=== PATIENT | male | born 1950 | race Hispanic/Latino ===

== ENCOUNTER 2019-10-29 08:44 | Day surgery (SDC) | payer MEDICARE ==
[2019-10-28 15:26] LABS: BASOPHILS % (AUTO) 0.7 % (0.0-5.0); EOSINOPHILS % (AUTO) 3.1 % (0.0-8.0); HEMATOCRIT 41.7 % (42-54); LYMPHOCYTES % (AUTO) 25.3 % (21.0-51.0); MEAN CORPUSCULAR HEMOGLOBIN 32.5 pg (27.0-33.0); MEAN CORPUSCULAR HGB CONC 32.4 g/dL (32.0-36.0); MEAN CORPUSCULAR VOLUME 100.5 fL (79-99); MONOCYTES % (AUTO) 9.7 % (3.0-13.0); NEUTROPHILS % (AUTO) 60.9 % (40.0-77.0); PLATELET COUNT (AUTO) 242 K/uL (130-400); RED BLOOD CELL COUNT(AUTO) 4.15 MIL/uL (4.50-6.20); RED CELL DISTRIBUTION WIDTH 13.1 % (11.0-15.5); WHITE BLOOD COUNT (AUTO) 7.1 K/uL (4.8-10.8)
[2019-10-28 15:36] VITALS: BP 124/76
[2019-10-28 15:39] LABS: CREATININE 1.2 mg/dL (0.5-1.5); POTASSIUM 5.2 mmol/L (3.5-5.1)
[2019-10-28 15:40] LABS: PARTIAL THROMBOPLASTIN TIME 37.3 SEC (26.3-35.5)
[2019-10-28 16:03] LABS: INR 3.56 (0.85-1.15); PROTHROMBIN TIME 35.6 SEC (9.6-11.6)
--- NOTE | 2019-10-28 16:10 | NUR ---
LAB CALLED WITH CRITICAL INR 3.56, PT 35.6. SEYMOUR GARCIA IS AWARE. ORDERS ARE TO TELL PT. NOT TO TAKE WARFARIN TONIGHT AND TO REPEAT INR/PT IN AM.
[2019-10-29] VITALS (13 sets, daily range): BP systolic 98–138; BP diastolic 49–75
[~2019-10-29] VITALS: Ht 188 cm; Wt 105.0 kg
[~2019-10-29 08:44] MED LIST: ATOR40TA69 PO; CLOP75TA32 PO; FAMO20TA8 PO; LISI2.5T2 PO; METO-391 PO; SODIUM CHLORIDE 0.9% 500ML 500 ML IV SCH
--- NOTE | 2019-10-29 08:54 | NUR ---
PROCEDURE PT HERE FOR PROCEDURE. DENIES ANY PAIN AT THIS TIME. AT BEDSIDE.
[2019-10-29] MEDS ORDERED: WARF7.5T49 PO (09:04)
[2019-10-29] MEDS ORDERED: SODIUM CHLORIDE 0.9% 1000ML 1,000 ML IV ONE (09:07)
[2019-10-29 09:20] LABS: INR 2.66 (0.85-1.15); PROTHROMBIN TIME 26.9 SEC (9.6-11.6)
[2019-10-29] MEDS ORDERED: MIDAZOLAM HCL 1 MG/ML 2ML VIAL ONE (09:24)
[2019-10-29] MEDS ORDERED: FENTANYL CITRATE PF 50 MCG/1 ML 2ML VIAL ONE (09:25)
[2019-10-29] MEDS ORDERED: FLUMAZENIL 0.1MG/1ML 5ML VIAL IV ONE (09:25)
[2019-10-29] MEDS ORDERED: LIDOCAINE HCL 2% VISCOUS 15 ML UDCUP ONE (09:26)
[2019-10-29] MEDS ORDERED: NALOXONE HCL 0.4 MG/1 ML ML ONE (09:26)
--- NOTE | 2019-10-29 10:00 | NUR ---
PT/INR SEYMOUR STEWART INFORMED OF NEW PT/INR RESULTS.ORDERS RECEIVED TO PROCEED WITH PLANNED PROCEDURE.
[2019-10-29] MEDS ORDERED: ATROPINE SULFATE 0.1 MG/ML 10 ML SYG IVP ONE (12:18)
--- NOTE | 2019-10-29 12:30 | NUR ---
HR DR. CARMONA INFORMED OF HR IN THE 39-48. NO ORDERS RECEIVED. PROCEED WITH PLANNED PROCEDURE.
== END 2019-10-29 15:30 | disposition home or self-care (01) ==
LOC: DAH 08:44
PROVIDERS: ATTEND Internal Medicine Cardiovascular Disease
DX: I25.5 Ischemic cardiomyopathy (principal); I51.3 Intracardiac thrombosis, not elsewhere classified; I70.0 Atherosclerosis of aorta; I35.1 Nonrheumatic aortic (valve) insufficiency; Z79.899 Other long term (current) drug therapy; Z95.5 Presence of coronary angioplasty implant and graft; Z98.890 Other specified postprocedural states; Z79.01 Long term (current) use of anticoagulants
CPT/HCPCS: 36415 ×2; 80048; 85025; 85610 ×2; 85730; 93312; A4215; A4216; A4222; A4223 ×2; A4663; J2250; J3010; J7030; 93313; 99152; 99153; J0461; J2310; J3490

== ENCOUNTER 2020-06-14 14:28 | Emergency (ER) | payer MEDICARE ==
[~2020-06-14 14:28] MED LIST changes: -METO-391 PO; -SODIUM CHLORIDE 0.9% 500ML 500 ML IV SCH
[2020-06-14] MEDS ORDERED: ASPIRIN 325 MG TABLET ONE (14:55)
[2020-06-14 15:08] LABS: BASOPHILS % (AUTO) 0.7 % (0.0-5.0); EOSINOPHILS % (AUTO) 2.2 % (0.0-8.0); HEMATOCRIT 42.6 % (42-54); LYMPHOCYTES % (AUTO) 23.7 % (21.0-51.0); MEAN CORPUSCULAR HGB CONC 33.6 g/dL (32.0-36.0); MEAN CORPUSCULAR VOLUME 98.4 fL (79-99); MONOCYTES % (AUTO) 10.2 % (3.0-13.0); NEUTROPHILS % (AUTO) 63.1 % (40.0-77.0); PLATELET COUNT (AUTO) 223 K/uL (130-400); RED BLOOD CELL COUNT(AUTO) 4.33 MIL/uL (4.50-6.20); RED CELL DISTRIBUTION WIDTH 12.6 % (11.0-15.5); WHITE BLOOD COUNT (AUTO) 8.4 K/uL (4.8-10.8)
[2020-06-14 15:19] LABS: INR 0.91 (0.85-1.15); PARTIAL THROMBOPLASTIN TIME 23.9 SEC (26.3-35.5); PROTHROMBIN TIME 9.9 SEC (9.6-11.6)
[2020-06-14 15:22] LABS: CREATININE 1.9 mg/dL (0.5-1.5); POTASSIUM 4.3 mmol/L (3.5-5.1)
[2020-06-14 15:27] LABS: ALBUMIN 3.7 g/dL (3.5-5.0); BILIRUBIN,TOTAL 0.4 mg/dL (0.2-1.0); TOTAL PROTEIN, SERUM 7.9 g/dL (6.0-8.3)
[2020-06-14 15:31] LABS: B-TYPE NATRIURETIC PEPTIDE 62 pg/mL (0-100)
== END 2020-06-14 18:17 | disposition left against medical advice (07) ==
LOC: EDH 14:28
DX: R07.89 Other chest pain (principal); I25.10 Atherosclerotic heart disease of native coronary artery without angina pectoris; Z98.890 Other specified postprocedural states
CPT/HCPCS: 36415; 71045; 80053; 82550; 83880; 84484; 85025; 85610; 85730; 93005

== ENCOUNTER 2020-06-19 15:47 | Inpatient (IN) | payer MEDICARE ==
[~2020-06-19] VITALS: Ht 190.5 cm; Wt 108.9 kg
[2020-06-19] VITALS (9 sets, daily range): BP systolic 101–115; BP diastolic 71–77
[2020-06-19] MEDS ORDERED: ONDANSETRON HCL 4 MG/2 ML VIAL ONE (15:55)
[2020-06-19] MEDS ORDERED: FENTANYL CITRATE PF 50 MCG/1 ML 2ML VIAL ONE ×2 (15:55→17:39)
[2020-06-19] MEDS ORDERED: ASPIRIN 325 MG TABLET ONE (16:04)
[2020-06-19 16:06] LABS: BASOPHILS % (AUTO) 0.8 % (0.0-5.0); EOSINOPHILS % (AUTO) 1.4 % (0.0-8.0); HEMATOCRIT 46.5 % (42-54); LYMPHOCYTES % (AUTO) 31.4 % (21.0-51.0); MEAN CORPUSCULAR HEMOGLOBIN 33.1 pg (27.0-33.0); MEAN CORPUSCULAR HGB CONC 33.3 g/dL (32.0-36.0); MEAN CORPUSCULAR VOLUME 99.4 fL (79-99); MONOCYTES % (AUTO) 10.5 % (3.0-13.0); NEUTROPHILS % (AUTO) 55.6 % (40.0-77.0); PLATELET COUNT (AUTO) 236 K/uL (130-400); RED BLOOD CELL COUNT(AUTO) 4.68 MIL/uL (4.50-6.20); RED CELL DISTRIBUTION WIDTH 12.6 % (11.0-15.5); WHITE BLOOD COUNT (AUTO) 9.8 K/uL (4.8-10.8)
[2020-06-19 16:15] LABS: INR 0.92 (0.85-1.15); PARTIAL THROMBOPLASTIN TIME 24.7 SEC (26.3-35.5)
[2020-06-19] MEDS ORDERED: DEXTROSE 5% IVP SCH (16:15)
[2020-06-19] MEDS ORDERED: WATER IVP SCH (16:15)
[2020-06-19] MEDS ORDERED: PROCAINAMIDE HCL IVP SCH (16:15)
[2020-06-19 16:18] LABS: POTASSIUM 4.2 mmol/L (3.5-5.1)
[2020-06-19 16:23] LABS: ALBUMIN 3.9 g/dL (3.5-5.0); BILIRUBIN,TOTAL 0.6 mg/dL (0.2-1.0); TOTAL PROTEIN, SERUM 8.5 g/dL (6.0-8.3)
[2020-06-19] MEDS: PROCAINAMIDE HCL IVP SCH (16:30)
[2020-06-19] MEDS: SODIUM CHLORIDE 0.9% IVP SCH (16:30)
[2020-06-19] MEDS ORDERED: AMIODARONE HCL 50 MG/ML 3 ML VIAL ONE (17:09)
[2020-06-19] MEDS ORDERED: AMIODARONE HCL 900 MG in DEXTROSE 5%-WATER 500 ML IV SCH (17:15)
[2020-06-19] MEDS ORDERED: AMIODARONE HCL 450 MG in DEXTROSE 5%-WATER 250 ML IV SCH (17:30)
[2020-06-19] MEDS ORDERED: MIDAZOLAM HCL 5 MG/ML 2ML VIAL IV ONE (17:39)
[2020-06-19] MEDS ORDERED: SODIUM CHLORIDE 0.9% 1000ML 1,000 ML IV ONE (17:40)
[2020-06-19] MEDS ORDERED: METOPROLOL TARTRATE 1 MG/ML 5ML VIAL IV ONE (17:56)
[2020-06-19 18:07] LABS: BASOPHILS % (AUTO) 0.5 % (0.0-5.0); EOSINOPHILS % (AUTO) 0.5 % (0.0-8.0); HEMATOCRIT 40.8 % (42-54); LYMPHOCYTES % (AUTO) 11.5 % (21.0-51.0); MEAN CORPUSCULAR HEMOGLOBIN 33.2 pg (27.0-33.0); MEAN CORPUSCULAR HGB CONC 33.6 g/dL (32.0-36.0); MEAN CORPUSCULAR VOLUME 98.8 fL (79-99); MONOCYTES % (AUTO) 6.8 % (3.0-13.0); NEUTROPHILS % (AUTO) 80.3 % (40.0-77.0); PLATELET COUNT (AUTO) 203 K/uL (130-400); RED BLOOD CELL COUNT(AUTO) 4.13 MIL/uL (4.50-6.20); RED CELL DISTRIBUTION WIDTH 12.7 % (11.0-15.5); WHITE BLOOD COUNT (AUTO) 11.3 K/uL (4.8-10.8)
[2020-06-19] MEDS ORDERED: HEPARIN 25000 UNITS/250 ML D5W 250 ML IV ONE (18:19)
[2020-06-19] MEDS ORDERED: METOPROLOL TARTRATE 50 MG TAB ONE (18:19)
[2020-06-19 18:21] LABS: ALBUMIN 3.3 g/dL (3.5-5.0); BILIRUBIN,TOTAL 0.6 mg/dL (0.2-1.0)
[2020-06-19 18:29] LABS: TROPONIN I 0.37 ng/mL (0.00-0.06)
[2020-06-19] MEDS ORDERED: HEPARIN SODIUM/PF 100UNIT/ML 5ML SYRINGE IV ONE (18:35)
[2020-06-19] MEDS ORDERED: HEPARIN SODIUM 5000UNIT/ML 1ML VIAL ONE (18:54)
--- NOTE | 2020-06-19 20:00 | NUR ---
NEW ADMISSION 70 YEAR OLD MALE PT ADMITTED TO DAY PATIENT ICU ROOM 1B WITH A DX OF CHEST PAIN AND WIDE COMPLEX TACHYCARDIA WITH HEPARIN AND AMIODARONE INFUSING WITHOUT DIFFICULTY. PT AAOX4, PLEASANT, COOPERATIVE, CURRENTLY DENIES ANY PAIN, CHEST PAIN, S.O.B., OR NAUSEA. PT MADE AWARE OF PLAN OF CARE, BEDREST, O2 AND RATIONALE, QUESTIONS ASKED AND ANSWERED. ASSESSMENT COMPLETED, SEE FLOW SHEET. ALSO SEE NURSING DATA BASE AND PT HX FOR MORE INFORMATION.
--- NOTE | 2020-06-19 20:10 | NUR ---
DR GONZALES ANSWERING SERVICE MADE AWARE OF CONSULT AT 1956. DR GONZALES RETURNED THE CALL AND MADE AWARE OF CONSULT
--- NOTE | 2020-06-19 20:12 | NUR ---
DR GIBSON ARREAGA MADE AWARE OF CONSULT
[2020-06-19] MEDS: HEPARIN 25000 UNITS/250 ML D5W 250 ML IV SCH (20:26)
[2020-06-19] MEDS: MAGNESIUM 2GM PREMIX 50ML 50 ML IV PRN (20:45)
[2020-06-19] MEDS: METOPROLOL TARTRATE 25 MG TAB PO SCH (21:00)
--- NOTE | 2020-06-19 21:15 | NUR ---
DR DEVYN SHEPARD INTO SEE PT. MADE AWARE OF CURRENT STATUS. NO NEW ORDERS RECEIVED
[2020-06-19] MEDS ORDERED: NITR0.4T50 SL (23:06)
[2020-06-19] MEDS ORDERED: AEC81 PO (23:06)
[2020-06-20] VITALS (24 sets, daily range): BP systolic 93–143; BP diastolic 41–79
[2020-06-20 00:07] LABS: TROPONIN I 10.85 ng/mL (0.00-0.06)
[2020-06-20 01:00] LABS: PROTHROMBIN TIME 10.8 SEC (9.6-11.6)
[2020-06-20 02:16] LABS: PARTIAL THROMBOPLASTIN TIME > 120.0 SEC (26.3-35.5)
[2020-06-20 05:39] LABS: EOSINOPHILS % (AUTO) 1.6 % (0.0-8.0); HEMATOCRIT 39.9 % (42-54); LYMPHOCYTES % (AUTO) 22.5 % (21.0-51.0); MEAN CORPUSCULAR HEMOGLOBIN 33.1 pg (27.0-33.0); MEAN CORPUSCULAR HGB CONC 33.1 g/dL (32.0-36.0); NEUTROPHILS % (AUTO) 62.5 % (40.0-77.0); PLATELET COUNT (AUTO) 182 K/uL (130-400); RED BLOOD CELL COUNT(AUTO) 3.99 MIL/uL (4.50-6.20); RED CELL DISTRIBUTION WIDTH 12.8 % (11.0-15.5); WHITE BLOOD COUNT (AUTO) 9.3 K/uL (4.8-10.8)
[2020-06-20 06:33] LABS: CREATININE 1.9 mg/dL (0.5-1.5); MAGNESIUM 2.2 mg/dL (1.80-2.40); PHOSPHORUS 3.7 mg/dL (2.5-4.9); POTASSIUM 4.9 mmol/L (3.5-5.1); THYROID STIMULATING HORMONE 2.79 uIU/mL (0.36-3.74)
[2020-06-20 06:36] LABS: TROPONIN I 18.01 ng/mL (0.00-0.06)
[2020-06-20] MEDS: METOPROLOL TARTRATE 25 MG TAB PO SCH ×3 (07:59→21:20)
[2020-06-20 08:51] LABS: INR 0.99 (0.85-1.15); PROTHROMBIN TIME 10.7 SEC (9.6-11.6)
[2020-06-20 08:55] LABS: PARTIAL THROMBOPLASTIN TIME > 120.0 SEC (26.3-35.5)
--- NOTE | 2020-06-20 11:55 | NUR ---
cm note met with pt and states resides at home with spouse, independent with adls/ambulation no dme. no home services, pt drives. dc plan is back home. no dc needs. Addendum: 06/20/20 at 1159 by MALACHI LOVE CM Amended: Links added.
[2020-06-20] MEDS: CLOPIDOGREL BISULFATE 75 MG TAB PO SCH (12:36)
[2020-06-20] MEDS: PROCAINAMIDE HCL IVP SCH (12:37)
[2020-06-20] MEDS: SODIUM CHLORIDE 0.9% IVP SCH (12:37)
[2020-06-20] MEDS: SODIUM CHLORIDE 0.9% 1000ML 1,000 ML IV SCH (16:08)
[2020-06-20 16:41] LABS: INR 0.97 (0.85-1.15); PROTHROMBIN TIME 10.5 SEC (9.6-11.6)
[2020-06-20 17:07] LABS: PARTIAL THROMBOPLASTIN TIME 103.8 SEC (26.3-35.5)
[2020-06-20] MEDS: AMIODARONE HCL 200 MG TABLET PO SCH (21:20)
[2020-06-20] MEDS: ATORVASTATIN CALCIUM 40 MG TABLET PO SCH (21:20)
[2020-06-20 23:41] LABS: PARTIAL THROMBOPLASTIN TIME 74.1 SEC (26.3-35.5); PROTHROMBIN TIME 10.8 SEC (9.6-11.6)
[2020-06-21] VITALS (24 sets, daily range): BP systolic 93–136; BP diastolic 53–95
[2020-06-21 06:18] LABS: MEAN CORPUSCULAR HEMOGLOBIN 33.4 pg (27.0-33.0); MEAN CORPUSCULAR HGB CONC 33.3 g/dL (32.0-36.0); MEAN CORPUSCULAR VOLUME 100.3 fL (79-99); PLATELET COUNT (AUTO) 178 K/uL (130-400); RED BLOOD CELL COUNT(AUTO) 3.89 MIL/uL (4.50-6.20); RED CELL DISTRIBUTION WIDTH 12.7 % (11.0-15.5); WHITE BLOOD COUNT (AUTO) 10.9 K/uL (4.8-10.8)
[2020-06-21 06:31] LABS: CREATININE 1.8 mg/dL (0.5-1.5); POTASSIUM 4.9 mmol/L (3.5-5.1)
[2020-06-21 06:33] LABS: INR 0.97 (0.85-1.15); PARTIAL THROMBOPLASTIN TIME 61.1 SEC (26.3-35.5); PROTHROMBIN TIME 10.5 SEC (9.6-11.6)
[2020-06-21 07:55] LABS: BASOPHILS % (MANUAL) 1 % (0-2); EOSINOPHILS % (MANUAL) 2 % (1-6); LYMPHOCYTES % (MANUAL) 22 % (22-44); MAN.DIFF COMMENT-IMPRESSION MANUAL DIFFERENTIAL; MONOCYTES % (MANUAL) 11 % (2-9); PLATELET MORPHOLOGY COMMENT ADEQUATE; SEGMENTED NEUTROPHILS % 64 % (40-70)
[2020-06-21] MEDS: AMIODARONE HCL 200 MG TABLET PO SCH ×2 (09:43→21:00)
[2020-06-21] MEDS: CLOPIDOGREL BISULFATE 75 MG TAB PO SCH (09:44)
[2020-06-21] MEDS: SODIUM CHLORIDE 0.9% 1000ML 1,000 ML IV SCH (09:44)
[2020-06-21] MEDS: METOPROLOL TARTRATE 25 MG TAB PO SCH ×2 (09:44→13:48)
[2020-06-21] MEDS: ASPIRIN 81MG TAB.CHEW PO SCH (09:44)
[2020-06-21] MEDS: HEPARIN 25000 UNITS/250 ML D5W 250 ML IV SCH (10:02)
[2020-06-21] MEDS ORDERED: NICARDIPINE HCL 25 MG/10 ML ML IV ONE (12:01)
[2020-06-21] MEDS ORDERED: HEPARIN SODIUM 1000UNIT/ML 10ML VIAL ONE (12:02)
[2020-06-21] MEDS ORDERED: LIDOCAINE HCL 2% 20ML ONE (12:02)
[2020-06-21] MEDS ORDERED: NITROGLYCERIN 2 MG/VIAL VIAL IV ONE (12:02)
[2020-06-21] MEDS ORDERED: IOHEXOL-350 50ML VIAL IV ONE (12:02)
[2020-06-21] MEDS ORDERED: IOHEXOL 350 MG/ML 100ML INFUS..BTL IV ONE (12:02)
--- NOTE | 2020-06-21 12:45 | NUR ---
Pt taken to [facility] for LHC.
[2020-06-21] MEDS ORDERED: FENTANYL CITRATE PF 50 MCG/1 ML 2ML VIAL ONE ×2 (13:08→23:27)
[2020-06-21] MEDS ORDERED: MIDAZOLAM HCL 1 MG/ML 2ML VIAL ONE ×2 (13:08→23:28)
[2020-06-21] MEDS: PROCAINAMIDE HCL IVP SCH (13:48)
[2020-06-21] MEDS: SODIUM CHLORIDE 0.9% IVP SCH (13:48)
[2020-06-21] MEDS ORDERED: SODIUM CHLORIDE 0.9% 1000ML 1,000 ML IV SCH (14:09)
--- NOTE | 2020-06-21 14:57 | NUR ---
DR. BREWSTER CALLED AND NOTIFIED OF CONSULT.
[2020-06-21 20:47] LABS: APPEARANCE,URINE Clear (CLEAR); BILIRUBIN,URINE Negative (NEGATIVE); COLOR,URINE Yellow (YELLOW); GLUCOSE, URINE (UA) Negative (NEGATIVE); KETONES,URINE Negative (NEGATIVE); LEUKOCYTE ESTERASE ,URINE Trace (NEGATIVE); NITRATE,URINE Negative (NEGATIVE); OCCULT BLOOD,URINE Large (NEGATIVE); PROTEIN,URINE Trace mg/dL (NEGATIVE)
[2020-06-21 20:55] LABS: AMPHET/METH SCREEN,URINE NEGATIVE (NEGATIVE); BARBITURATE SCREEN, URINE NEGATIVE (NEGATIVE); BENZODIAZEPINES SCREEN,URINE POSITIVE (NEGATIVE); CANNABINOID SCREEN,URINE NEGATIVE (NEGATIVE); COCAINE SCREEN,URINE NEGATIVE (NEGATIVE); OPIATE SCREEN,URINE NEGATIVE (NEGATIVE); PHENCYCLIDINE SCREEN,URINE NEGATIVE (NEGATIVE)
[2020-06-21] MEDS: ATORVASTATIN CALCIUM 40 MG TABLET PO SCH (21:00)
[2020-06-21 21:12] LABS: BACTERIA,URINE Rare /HPF (None Seen); SQUAMOUS EPITHELIAL CELL,UR Rare /HPF (0-2); WBC,URINE 0-1 /HPF (0-1)
[2020-06-21] MEDS ORDERED: AMIODARONE HCL 150 MG in DEXTROSE 5%-WATER 100 ML IV SCH (21:15)
[2020-06-21] MEDS ORDERED: AMIODARONE HCL 360 MG in DEXTROSE 5%-WATER 200 ML IV SCH (21:15)
[2020-06-21 21:30] LABS: CREATININE 1.8 mg/dL (0.5-1.5); POTASSIUM 4.1 mmol/L (3.5-5.1)
[2020-06-21 21:34] LABS: ALBUMIN 3.2 g/dL (3.5-5.0); BILIRUBIN,TOTAL 0.4 mg/dL (0.2-1.0); MAGNESIUM 1.8 mg/dL (1.80-2.40)
--- NOTE | 2020-06-21 22:34 | NUR ---
dr tomas callejas notified of patients current status. patient was running vtach since 2049 converted to svt 2124 hr 210s patient asymptomatic, warm and dry, aaox4, most recent bp 144/87, patient on nc 2L reports palpitations has resolved denies chest pain the entire pain Addendum: 06/21/20 at 2313 by LIA NUNEZ RN informed dr callejas that dr trejo came up to evaluate patient and ordered the amiodarone bolus of 150mg and then start the amiodarone per protocol. informed dr callejas that metoprolol had been stopped if he wanted to resume. stated that patient was having episodes of bradycardia after the cardioversion so hold off on bb for now but discontinue fluids. dr callejas informed me that he spoke to dr zhu prior to calling me and the plan was as continues: give lidocaine 100mg iv x1 then start lidocaine drip at 2mg/hr stop fluids continue to hold bb - tomas callejas asked me to inform patient that if lidocaine drip does not help resolve current arrhythmia then he will need to be cardioverted tonight. patient updated and verbalized understanding. patient transferred to manda kyle in icu informed her of latest orders from dr tomas callejas patient aaox4, bp stable and drip currently running to r wrist 20g
[2020-06-21] MEDS ORDERED: LIDOCAINE 2G/250ML 250 ML IV SCH ×2 (22:45→23:00)
--- NOTE | 2020-06-21 22:53 | NUR ---
PATIENT ARRIVED TO ICU, ICU DAY PT BED-A. PT TRANSFERRED D/T SVT HR >200, PT REQUIRING AMIODARONE DRIP, LIDOCAINE DRIP AND POSSIBLE CARDIOVERSION. PATIENT IS AAOX4, NO C/O CHEST PAIN OR DISTRESS VOICED. PT STATES HE DOES FEEL ANXIETY. NEW ORDERS TO BE CARRIED OUT. HR AT THIS TIME AT SVT 203 bpm. WILL CONT TO MONITOR CLOSELY.
[2020-06-21] MEDS ORDERED: LIDOCAINE HCL/PF 2% IV FOR VENTRICULAR ARRHYTHMIA IV ONE (23:00)
[2020-06-21] MEDS ORDERED: MIDAZOLAM HCL 1 MG/ML 5ML VIAL IVP STA (23:22)
[2020-06-21] MEDS ORDERED: LIDOCAINE PF 2% 5ML ABBOJECT ONE (23:27)
[2020-06-21] MEDS ORDERED: FENTANYL CITRATE PF 50 MCG/1 ML 2ML VIAL IVP ONE (23:30)
[2020-06-22] VITALS (34 sets, daily range): BP systolic 88–155; BP diastolic 49–86
[2020-06-22] MEDS: METOPROLOL TARTRATE 25 MG TAB PO SCH ×3 (00:15→21:23)
--- NOTE | 2020-06-22 00:19 | NUR ---
MD ROUNDS: DR. ANDREEA ENGEL IN TO EVALUATE PATIENT. DECIDED ON CARDIOVERSION. PT RECEIVED 3 MG VERSED AND 75 MCG OF FENTANYL IV PUSH. PT IS ON O2 2 LITERS NC. PATIENT CARDIOVERTED @ 0001 AND CONVERTED TO SR 80s-90s. HE WILL CONT ON AMIODARONE DRIP PER PROTOCOL AND LIDOCAINE DRIP 2MG/HR AND NS AT 60 ML. PT TO START METOPROLOL 25 MG PO x 1 DOSE TONIGHT, WHEN PATIENT IS MORE AWAKE. WILL CONT TO MONITOR CLOSELY.
[2020-06-22] MEDS: MAGNESIUM 2GM PREMIX 50ML 50 ML IV PRN (01:42)
--- NOTE | 2020-06-22 02:32 | NUR ---
RESTING QUIETLY, RR EVEN NONLABORED, HR SB 57 BP 119/70. WILL CONT TO MONITOR CLOSELY.
[2020-06-22 04:55] LABS: BASOPHILS % (AUTO) 0.5 % (0.0-5.0); EOSINOPHILS % (AUTO) 0.7 % (0.0-8.0); HEMATOCRIT 36.9 % (42-54); LYMPHOCYTES % (AUTO) 10.6 % (21.0-51.0); MEAN CORPUSCULAR HEMOGLOBIN 33.3 pg (27.0-33.0); MEAN CORPUSCULAR HGB CONC 33.6 g/dL (32.0-36.0); MEAN CORPUSCULAR VOLUME 99.2 fL (79-99); MONOCYTES % (AUTO) 10.9 % (3.0-13.0); PLATELET COUNT (AUTO) 180 K/uL (130-400); RED BLOOD CELL COUNT(AUTO) 3.72 MIL/uL (4.50-6.20); RED CELL DISTRIBUTION WIDTH 12.5 % (11.0-15.5); WHITE BLOOD COUNT (AUTO) 10.5 K/uL (4.8-10.8)
[2020-06-22 05:12] LABS: CREATININE 1.6 mg/dL (0.5-1.5); MAGNESIUM 2.5 mg/dL (1.80-2.40); PHOSPHORUS 2.6 mg/dL (2.5-4.9); POTASSIUM 4.3 mmol/L (3.5-5.1)
[2020-06-22] MEDS: CLOPIDOGREL BISULFATE 75 MG TAB PO SCH (08:41)
[2020-06-22] MEDS: AMIODARONE HCL 200 MG TABLET PO SCH ×2 (08:45→21:23)
[2020-06-22] MEDS: ASPIRIN 81MG TAB.CHEW PO SCH (08:45)
[2020-06-22] MEDS ORDERED: HEPARIN SODIUM 1000UNIT/ML 10ML VIAL ONE ×2 (14:36→18:43)
[2020-06-22] MEDS ORDERED: MIDAZOLAM HCL 1 MG/ML 2ML VIAL ONE ×4 (14:36→19:02)
[2020-06-22] MEDS ORDERED: MEPERIDINE-PF 25 MG/ML SYG ONE ×4 (14:36→18:41)
[2020-06-22] MEDS ORDERED: LIDOCAINE HCL 2% 20ML ONE (14:37)
--- NOTE | 2020-06-22 15:00 | NUR ---
1500 Patient taken to laboratory [facility] for EP study with possible ablation with Dr. Elkins.
[2020-06-22] MEDS: SODIUM CHLORIDE 0.9% IVP SCH (16:30)
[2020-06-22] MEDS: PROCAINAMIDE HCL IVP SCH (16:30)
[2020-06-22] MEDS ORDERED: IOHEXOL-350 50ML VIAL IV ONE (16:53)
[2020-06-22] MEDS: ATORVASTATIN CALCIUM 40 MG TABLET PO SCH (21:23)
--- NOTE | 2020-06-22 22:15 | NUR ---
Called Dr. Simmons regarding amiodarone gtt and duplicate metoprolol orders. Pt S/P ablation and amiodarone gtt from last night still active. Pt is taking PO amiodarone. HR is currently 56 in idioventricular rhythm. states amiodarone gtt not needed and to provide 12.5 MG metoprolol.
[2020-06-23] VITALS (17 sets, daily range): BP systolic 102–134; BP diastolic 64–84
[2020-06-23] MEDS: METOPROLOL TARTRATE 25 MG TAB PO SCH ×3 (00:15→20:00)
[2020-06-23 04:43] LABS: BASOPHILS % (AUTO) 0.3 % (0.0-5.0); EOSINOPHILS % (AUTO) 0.2 % (0.0-8.0); HEMATOCRIT 38.3 % (42-54); LYMPHOCYTES % (AUTO) 7.1 % (21.0-51.0); MEAN CORPUSCULAR HEMOGLOBIN 33.2 pg (27.0-33.0); MEAN CORPUSCULAR HGB CONC 32.9 g/dL (32.0-36.0); MEAN CORPUSCULAR VOLUME 100.8 fL (79-99); MONOCYTES % (AUTO) 8.2 % (3.0-13.0); NEUTROPHILS % (AUTO) 83.8 % (40.0-77.0); PLATELET COUNT (AUTO) 128 K/uL (130-400); RED CELL DISTRIBUTION WIDTH 12.5 % (11.0-15.5); WHITE BLOOD COUNT (AUTO) 11.2 K/uL (4.8-10.8)
[2020-06-23 04:47] LABS: POTASSIUM 4.5 mmol/L (3.5-5.1)
[2020-06-23 06:27] LABS: CREATININE 1.5 mg/dL (0.5-1.5)
[2020-06-23] MEDS: CLOPIDOGREL BISULFATE 75 MG TAB PO SCH (08:07)
[2020-06-23] MEDS: AMIODARONE HCL 200 MG TABLET PO SCH ×2 (08:08→20:00)
[2020-06-23] MEDS: APIXABAN 5 MG TABLET PO SCH ×2 (08:22→20:00)
[2020-06-23] MEDS ORDERED: ATOR40TA69 PO (09:01)
[2020-06-23] MEDS ORDERED: APIX5TAB PO (09:01)
[2020-06-23] MEDS ORDERED: CLOP75TA32 PO (09:01)
[2020-06-23] MEDS ORDERED: METO25 PO (09:01)
[2020-06-23] MEDS ORDERED: AMIO200T44 PO (09:01)
--- NOTE | 2020-06-23 17:00 | NUR ---
ARRIVAL TO ROOM 420 PT IS AAOX3 DENIES CP DENIES SOB DENIES NV NO COMPLAINTS. PATIENT IS ON TELEMETRY. CALL LIGHT WITHIN REACH.
[2020-06-23] MEDS: ATORVASTATIN CALCIUM 40 MG TABLET PO SCH (20:00)
[2020-06-24] VITALS (9 sets, daily range): BP systolic 103–134; BP diastolic 55–79
[2020-06-24 04:23] LABS: BASOPHILS % (AUTO) 0.3 % (0.0-5.0); HEMATOCRIT 29.1 % (42-54); LYMPHOCYTES % (AUTO) 14.7 % (21.0-51.0); MEAN CORPUSCULAR HEMOGLOBIN 33.2 pg (27.0-33.0); MEAN CORPUSCULAR VOLUME 97.7 fL (79-99); MONOCYTES % (AUTO) 12.2 % (3.0-13.0); NEUTROPHILS % (AUTO) 71.3 % (40.0-77.0); PLATELET COUNT (AUTO) 135 K/uL (130-400); RED BLOOD CELL COUNT(AUTO) 2.98 MIL/uL (4.50-6.20); RED CELL DISTRIBUTION WIDTH 12.3 % (11.0-15.5); WHITE BLOOD COUNT (AUTO) 10.3 K/uL (4.8-10.8)
[2020-06-24 04:53] LABS: ALBUMIN 2.5 g/dL (3.5-5.0); BILIRUBIN,TOTAL 0.6 mg/dL (0.2-1.0); CREATININE 1.7 mg/dL (0.5-1.5); MAGNESIUM 1.5 mg/dL (1.80-2.40); PHOSPHORUS 1.9 mg/dL (2.5-4.9); TOTAL PROTEIN, SERUM 5.8 g/dL (6.0-8.3)
--- NOTE | 2020-06-24 09:14 | NUR ---
DC PLAN RECEIVED ORDER FOR LIFE VEST. SPOKE TO PATIENT RECEIVED VERBAL CONSENT NURSE AT BEDSIDE WITNESS. GOT ORDERS SIGNED FROM DR. CARMONA. PACKET SENT AND EMAIL SENT TO REP. CALLED [facility] AT 4 SAID THAT IT STILL BEING WORKED ON AND WILL BE REVIEWED. Addendum: 06/24/20 at 0916 by ZOILA ARCE RN CM Amended: Links added.
--- NOTE | 2020-06-24 09:16 | NUR ---
LIFE VEST NOT DELIVERED LAST NIGHT. CALLED REP AND SENT EMAIL TO FOLLOW UP. PENDING REPLY. Addendum: 06/24/20 at 916 by ZOILA ARCE RN CM Amended: Links added.
[2020-06-24] MEDS: APIXABAN 5 MG TABLET PO SCH ×2 (11:55→21:33)
[2020-06-24] MEDS: METOPROLOL TARTRATE 25 MG TAB PO SCH ×2 (11:55→21:32)
[2020-06-24] MEDS: AMIODARONE HCL 200 MG TABLET PO SCH ×2 (11:56→21:33)
[2020-06-24] MEDS: CLOPIDOGREL BISULFATE 75 MG TAB PO SCH (11:56)
[2020-06-24] MEDS ORDERED: LIDOCAINE 2G/250ML 250 ML IV SCH (12:15)
[2020-06-24] MEDS ORDERED: PHARMACY COMMUNICATION MISC SCH (12:15)
[2020-06-24 12:24] LABS: BASOPHILS % (AUTO) 0.2 % (0.0-5.0); EOSINOPHILS % (AUTO) 0.7 % (0.0-8.0); HEMATOCRIT 30.7 % (42-54); LYMPHOCYTES % (AUTO) 15.7 % (21.0-51.0); MEAN CORPUSCULAR HGB CONC 34.5 g/dL (32.0-36.0); MEAN CORPUSCULAR VOLUME 98.4 fL (79-99); MONOCYTES % (AUTO) 11.8 % (3.0-13.0); PLATELET COUNT (AUTO) 148 K/uL (130-400); RED BLOOD CELL COUNT(AUTO) 3.12 MIL/uL (4.50-6.20); RED CELL DISTRIBUTION WIDTH 12.7 % (11.0-15.5); WHITE BLOOD COUNT (AUTO) 12.5 K/uL (4.8-10.8)
[2020-06-24] MEDS ORDERED: LIDOCAINE HCL/PF 2% IV FOR VENTRICULAR ARRHYTHMIA IV SCH (12:30)
[2020-06-24] MEDS ORDERED: SODIUM CHLORIDE 0.9% 1000ML 1,000 ML IV SCH (12:32)
[2020-06-24 12:40] LABS: BILIRUBIN,TOTAL 0.5 mg/dL (0.2-1.0); CREATININE 1.7 mg/dL (0.5-1.5); MAGNESIUM 1.7 mg/dL (1.80-2.40); POTASSIUM 3.8 mmol/L (3.5-5.1); TOTAL PROTEIN, SERUM 6.6 g/dL (6.0-8.3)
--- NOTE | 2020-06-24 12:45 | NUR ---
RAPID RESPONSE I RESPONDED TO RAPID RESPONSE, PATIENT HAVING VTACH WITH LIFEVEST SHOCKS. PT IS AAOX3, NEVER LOST CONSCIOUSNESS. O2 VIA NC APPLIED AND NOTIFIED DR BREWSTER OR PATIENTS CONDITION, ORDERS RECEIVED FOR LIDOCAINE IV PUSH/LIDOCAINE IVPB/AND MAGNESIUM IVP. MEDS GIVEN AND ORDERS CARRIED OUT. PATIENT TO BE TRANSFERRED TO ICU. REFER TO RAPID RESPONSE DOCUMENTATION. Addendum: 06/24/20 at 1640 by GARLAND NOBLE RN RN OF PATIENT'S CONDITION
--- NOTE | 2020-06-24 12:56 | NUR ---
REPORTED TO DR. BREWSTER THE TROPONIN 4.41
[2020-06-24] MEDS ORDERED: MAGNESIUM 2GM PREMIX 50ML 50 ML IV SCH (13:00)
[2020-06-24] MEDS: MAGNESIUM 2GM PREMIX 50ML 50 ML IV PRN (13:00)
[2020-06-24] MEDS: MEXILETINE HCL 150 MG CAP PO SCH (16:20)
--- NOTE | 2020-06-24 16:45 | NUR ---
DR. BREWSTER HERE AND RADIOLOGICAL EQUIPMENT SPECIALIST FROM [facility] THE [facility] REP. HERE AND REPLACED THE LIFE VEST AND INSTRUCTIONS GIVEN TO PATIENT.
--- NOTE | 2020-06-24 18:30 | NUR ---
LIDOCAINE WAS DC'D INSTRUCTED BY MISTI OF DR. BRITT.
[2020-06-24] MEDS: ATORVASTATIN CALCIUM 40 MG TABLET PO SCH (21:33)
[2020-06-25] VITALS (18 sets, daily range): BP systolic 94–142; BP diastolic 39–82
[2020-06-25] MEDS: MEXILETINE HCL 150 MG CAP PO SCH ×3 (00:22→14:02)
[2020-06-25 04:17] LABS: ALBUMIN 2.7 g/dL (3.5-5.0); BILIRUBIN,TOTAL 0.4 mg/dL (0.2-1.0); CREATININE 1.6 mg/dL (0.5-1.5); MAGNESIUM 1.8 mg/dL (1.80-2.40); POTASSIUM 3.8 mmol/L (3.5-5.1)
[2020-06-25] MEDS: CLOPIDOGREL BISULFATE 75 MG TAB PO SCH (08:51)
[2020-06-25] MEDS: APIXABAN 5 MG TABLET PO SCH (08:52)
[2020-06-25] MEDS: METOPROLOL TARTRATE 25 MG TAB PO SCH (08:52)
[2020-06-25] MEDS: AMIODARONE HCL 200 MG TABLET PO SCH (08:53)
--- NOTE | 2020-06-25 15:10 | NUR ---
MD UPDATE CARLOS MADE AWARE TARGE TMG 2.1 ACHIEVED. PT CURRENTLY STABLE, VSS, NO ACUTE DISTRESS NOTED. OKAY TO PROCEED WITH DISCHARGE PER CARDIOLOGY RECOMMENDATIONS. PT UPDATED.
[2020-06-25] MEDS ORDERED: MEXI150 PO (16:16)
== END 2020-06-25 17:45 | disposition home or self-care (01) | DRG 273 ==
LOC: EDH 15:47 → EDHIP 17:16 → DAHIP 19:46 → 4BH 06-21 16:36 → DAHIP 06-21 23:07 → 4CH 06-23 16:56 → DAHIP 06-24 13:52
PROVIDERS: ADMIT Hospitalist; ATTEND Hospitalist
PROC: 5A2204Z Restoration of Cardiac Rhythm, Single (ICD-10-PCS; principal; 2020-06-19)
PROC: 4A023N7 Measurement of Cardiac Sampling and Pressure, Left Heart, Percutaneous Approach (ICD-10-PCS; 2020-06-21)
PROC: B2111ZZ Fluoroscopy of Multiple Coronary Arteries using Low Osmolar Contrast (ICD-10-PCS; 2020-06-21)
PROC: B41F1ZZ Fluoroscopy of Right Lower Extremity Arteries using Low Osmolar Contrast (ICD-10-PCS; 2020-06-21)
PROC: 4A023FZ Measurement of Cardiac Rhythm, Percutaneous Approach (ICD-10-PCS; 2020-06-22)
PROC: 5A2204Z Restoration of Cardiac Rhythm, Single (ICD-10-PCS; 2020-06-22)
PROC: 4A0234Z Measurement of Cardiac Electrical Activity, Percutaneous Approach (ICD-10-PCS; 2020-06-22)
PROC: 02K83ZZ Map Conduction Mechanism, Percutaneous Approach (ICD-10-PCS; 2020-06-22)
PROC: 02583ZZ Destruction of Conduction Mechanism, Percutaneous Approach (ICD-10-PCS; 2020-06-22)
DX: I21.4 Non-ST elevation (NSTEMI) myocardial infarction (principal); I46.9 Cardiac arrest, cause unspecified; N17.9 Acute kidney failure, unspecified; I13.0 Hypertensive heart and chronic kidney disease with heart failure and stage 1 through stage 4 chronic kidney disease, or unspecified chronic kidney disease; I47.1 Supraventricular tachycardia; I50.22 Chronic systolic (congestive) heart failure; I25.5 Ischemic cardiomyopathy; N18.3 Chronic kidney disease, stage 3 (moderate); I25.10 Atherosclerotic heart disease of native coronary artery without angina pectoris; E78.00 Pure hypercholesterolemia, unspecified; E78.5 Hyperlipidemia, unspecified; E83.42 Hypomagnesemia; Z95.5 Presence of coronary angioplasty implant and graft
CPT/HCPCS: 36415; 71045; 76770; 80048; 80053; 80305; 81001; 82550; 82948; 83735; 83874; 83880; 84100; 84443; 84484; 85025; 85027; 85610; 85730; 93005; 93306; 93356; 93454; 93654; 93655; 99156; 99157; 99291; C1730; C1760; C1769; C1894; G0378; J0282; J1642; J1644; J2001; J2175; J2250; J2405; J2690; J3010; J3475; J3490; J7030; J7050; J7060; Q9967

== ENCOUNTER → 2020-07-23 | Outpatient (CLI) | payer MEDICARE ==
[~2020-07-23] VITALS: Ht 189.2 cm; Wt 104.1 kg
[~2020-07-23] MED LIST changes: +AMIO200T44 PO; +APIX5TAB PO; +CEFAZOLIN SODIUM 1 GM VIAL IVP SCH; +METO25 PO; +MEXI150 PO; +NITR0.4T50 SL
[2020-07-23 11:01] LABS: BASOPHILS % (AUTO) 0.8 % (0.0-5.0); EOSINOPHILS % (AUTO) 1.6 % (0.0-8.0); LYMPHOCYTES % (AUTO) 14.1 % (21.0-51.0); MEAN CORPUSCULAR HEMOGLOBIN 34.3 pg (27.0-33.0); MEAN CORPUSCULAR HGB CONC 32.5 g/dL (32.0-36.0); MEAN CORPUSCULAR VOLUME 105.5 fL (79-99); MONOCYTES % (AUTO) 9.3 % (3.0-13.0); NEUTROPHILS % (AUTO) 73.9 % (40.0-77.0); PLATELET COUNT (AUTO) 224 K/uL (130-400); RED BLOOD CELL COUNT(AUTO) 3.79 MIL/uL (4.50-6.20); RED CELL DISTRIBUTION WIDTH 14.3 % (11.0-15.5); WHITE BLOOD COUNT (AUTO) 7.6 K/uL (4.8-10.8)
[2020-07-23 11:11] LABS: CREATININE 1.9 mg/dL (0.5-1.5); MAGNESIUM 1.9 mg/dL (1.80-2.40); POTASSIUM 4.7 mmol/L (3.5-5.1)
--- NOTE | 2020-07-26 10:37 | NUR ---
LABS INFORMED DR. BREWSTER'S PAPER FOLDER OF ABNORMAL BUN AND CREATNINE. SHE WILL INFORM Janet AHUJA AND CALL ME BACK.
--- NOTE | 2020-07-26 13:05 | NUR ---
LABS AB ON PHONE, PER Janet NOBLE, NO NEW ORDERS RECEIVED AND PROCEED WITH PLANNED PROCEDURE.
[2020-07-26 14:55] VITALS: BP 144/75
--- NOTE | 2020-07-26 15:39 | NUR ---
RESCHEDULE PATIENT STATES LAST DOSE OF ELIQUIS 5MG WAS TAKEN THIS MORNING 07/26/2020 AT 8 AM. SEYMOUR JOE NOTIFIED VIA TELEPHONE. PATIENT IS TO BE RESCHEDULED FOR PLANNED PROCEDURE. [facility]ART CLINIC WILL CONTACT AND NOTIFY PATIENT.
== END ==
LOC: DAH 10:00 → EDSTATUS 07-27 09:00
PROVIDERS: ATTEND Internal Medicine Cardiovascular Disease
DX: Z01.818 Encounter for other preprocedural examination (principal); I47.2 Ventricular tachycardia; I25.5 Ischemic cardiomyopathy
CPT/HCPCS: 36415; 80048; 83735; 85025

== ENCOUNTER 2020-08-04 08:22 | Observation (INO) | payer MEDICARE ==
[2020-08-02 14:30] LABS: BASOPHILS % (AUTO) 0.7 % (0.0-5.0); EOSINOPHILS % (AUTO) 2.5 % (0.0-8.0); HEMATOCRIT 39.5 % (42-54); LYMPHOCYTES % (AUTO) 19.7 % (21.0-51.0); MEAN CORPUSCULAR HEMOGLOBIN 33.6 pg (27.0-33.0); MEAN CORPUSCULAR HGB CONC 32.2 g/dL (32.0-36.0); MEAN CORPUSCULAR VOLUME 104.5 fL (79-99); MONOCYTES % (AUTO) 10.2 % (3.0-13.0); NEUTROPHILS % (AUTO) 66.7 % (40.0-77.0); PLATELET COUNT (AUTO) 227 K/uL (130-400); RED BLOOD CELL COUNT(AUTO) 3.78 MIL/uL (4.50-6.20); RED CELL DISTRIBUTION WIDTH 13.8 % (11.0-15.5); WHITE BLOOD COUNT (AUTO) 8.1 K/uL (4.8-10.8)
[2020-08-02 14:48] LABS: CREATININE 1.8 mg/dL (0.5-1.5); MAGNESIUM 1.8 mg/dL (1.80-2.40); POTASSIUM 4.5 mmol/L (3.5-5.1)
[~2020-08-04] VITALS: Ht 190.5 cm; Wt 106.2 kg
[2020-08-04] VITALS (11 sets, daily range): BP systolic 104–158; BP diastolic 64–85
[~2020-08-04 08:22] MED LIST changes: -APIX5TAB PO; -ATOR40TA69 PO; -FAMO20TA8 PO; -MEXI150 PO; +MEXI150C17 PO; -NITR0.4T50 SL; +SODIUM CHLORIDE 0.9% 1000ML 1,000 ML IV SCH
[2020-08-04] MEDS ORDERED: CEFAZOLIN SODIUM 1 GM VIAL ONE (08:31)
[2020-08-04] MEDS ORDERED: MEPERIDINE-PF 25 MG/ML SYG ONE ×4 (08:31→10:25)
[2020-08-04] MEDS ORDERED: BUPIVACAINE/PF 0.25% 30ML VIAL IJ ONE (08:31)
[2020-08-04] MEDS ORDERED: LIDOCAINE HCL 1% MDV 50ML VIAL ONE (08:32)
[2020-08-04] MEDS ORDERED: MIDAZOLAM HCL 1 MG/ML 2ML VIAL ONE ×4 (08:32→10:25)
[2020-08-04 09:24] LABS: INR 0.92 (0.85-1.15); PARTIAL THROMBOPLASTIN TIME 25.4 SEC (26.3-35.5)
[2020-08-04] MEDS ORDERED: ATOR40TA71 PO (09:45)
[2020-08-04] MEDS ORDERED: IOHEXOL-350 50ML VIAL IV ONE (10:03)
[2020-08-04] MEDS ORDERED: ACETAMINOPHEN-CODEINE 300/30MG TAB PO PRN (11:00)
[2020-08-04] MEDS ORDERED: MEXILETINE HCL 150 MG CAP PO SCH (14:00)
[2020-08-04] MEDS: METOPROLOL TARTRATE 25 MG TAB PO SCH (20:48)
[2020-08-04] MEDS: AMIODARONE HCL 200 MG TABLET PO SCH (20:48)
[2020-08-04] MEDS ORDERED: ATORVASTATIN CALCIUM 40 MG TABLET PO SCH (21:00)
[2020-08-05 00:02] VITALS: BP 131/81
[2020-08-05 04:17] VITALS: BP 137/81
[2020-08-05 07:58] VITALS: BP 137/75
[2020-08-05] MEDS: METOPROLOL TARTRATE 25 MG TAB PO SCH (07:59)
[2020-08-05] MEDS: AMIODARONE HCL 200 MG TABLET PO SCH (07:59)
[2020-08-05] MEDS ORDERED: LISINOPRIL 2.5 MG TABLET PO SCH (09:00)
[2020-08-05] MEDS ORDERED: CLOPIDOGREL BISULFATE 75 MG TAB PO SCH (09:00)
[2020-08-05 09:58] LABS: HEMATOCRIT 36.2 % (42-54); MEAN CORPUSCULAR HEMOGLOBIN 33.5 pg (27.0-33.0); MEAN CORPUSCULAR HGB CONC 32.9 g/dL (32.0-36.0); PLATELET COUNT (AUTO) 185 K/uL (130-400); RED BLOOD CELL COUNT(AUTO) 3.55 MIL/uL (4.50-6.20); RED CELL DISTRIBUTION WIDTH 13.1 % (11.0-15.5); WHITE BLOOD COUNT (AUTO) 7.8 K/uL (4.8-10.8)
[2020-08-05 10:16] LABS: BILIRUBIN,TOTAL 0.4 mg/dL (0.2-1.0); CREATININE 1.7 mg/dL (0.5-1.5); POTASSIUM 4.1 mmol/L (3.5-5.1); TOTAL PROTEIN, SERUM 6.8 g/dL (6.0-8.3)
[2020-08-05] MEDS ORDERED: AMIO200T44 PO (11:01)
[2020-08-05 11:09] LABS: BAND NEUTROPHILS % (MANUAL) 1 % (0-2); EOSINOPHILS % (MANUAL) 2 % (1-6); LYMPHOCYTES % (MANUAL) 19 % (22-44); MAN.DIFF COMMENT-IMPRESSION MANUAL DIFFERENTIAL; MONOCYTES % (MANUAL) 2 % (2-9); SEGMENTED NEUTROPHILS % 76 % (40-70)
[2020-08-05 11:10] LABS: PLATELET MORPHOLOGY COMMENT ADEQUATE
[2020-08-05 12:40] VITALS: BP 129/75
[2020-08-05 16:21] VITALS: BP 131/72
== END 2020-08-05 18:01 | disposition home or self-care (01) ==
LOC: DAH 08:22 → DAHIP 08:23 → 4DH 16:44
PROVIDERS: ADMIT Internal Medicine; ATTEND Internal Medicine
DX: I25.5 Ischemic cardiomyopathy (principal); I47.2 Ventricular tachycardia; I25.10 Atherosclerotic heart disease of native coronary artery without angina pectoris; I10 Essential (primary) hypertension; Z95.5 Presence of coronary angioplasty implant and graft; Z79.01 Long term (current) use of anticoagulants; Z79.899 Other long term (current) drug therapy
CPT/HCPCS: 33249; 36415 ×3; 71045; 80048; 80053; 83735; 85025 ×2; 85610; 85730; A4215; A4216; A4221; A4222; A4223 ×3; A4606; A4663; C1721; C1895 ×2; G0378 ×17; J0690; J2175 ×4; J2250 ×4; J3490 ×2; J7030; Q9967; 99156; 99157

== ENCOUNTER → 2022-02-01 | Outpatient (CLI) | payer MEDICARE ==
[~2022-02-01] MED LIST changes: +ATOR40TA71 PO; -CEFAZOLIN SODIUM 1 GM VIAL IVP SCH; +LISI2.5T13 PO; -LISI2.5T2 PO; -MEXI150C17 PO; -SODIUM CHLORIDE 0.9% 1000ML 1,000 ML IV SCH
== END | disposition home or self-care (01) ==
LOC: SHCH 09:06
PROVIDERS: ATTEND Internal Medicine Cardiovascular Disease
DX: I65.23 Occlusion and stenosis of bilateral carotid arteries (principal); I25.10 Atherosclerotic heart disease of native coronary artery without angina pectoris; E78.5 Hyperlipidemia, unspecified; Z95.5 Presence of coronary angioplasty implant and graft
CPT/HCPCS: 93880

== ENCOUNTER 2024-11-17 07:57 | Day surgery (SDC) | payer MEDICARE ==
--- NOTE | 2024-11-13 10:48 | EKG ---
[facility] Test Date: 2024-11-13 Test Time: 11:35:08 Pat Name: SHY DESIR Department: [facility] Room: Gender: M Issue Clerk: [id number] : 1950 Requested By: Mike CARMONA Order Number: [id number] Reading MD: Jose Brown Measurements Intervals [place] Rate: 60 P: -33 GA: 177 QRS: 62 QRSD: 135 T: -39 QT: 445 QTc: 445 Interpretive Statements Sinus rhythm Nonspecific intraventricular conduction delay Inferior infarct, age indeterminate Compared to ECG 10/21/2022 14:06:55 Intraventricular conduction delay now present Atrial-paced complex(es) or rhythm no longer present Ventricular-paced complex(es) or rhythm no longer present Myocardial infarct finding still present Electronically Signed On 11-14-2024 17:38:30 PEDIATRICIAN/MEDICAL DOCTOR by Jose Brown Please click the below link to view image of tracing.
[2024-11-13 10:53] LABS: BASOPHILS # (AUTO) 0.05 K/uL (0.00-0.20); BASOPHILS % (AUTO) 0.6 % (0.0-5.0); EOSINOPHILS # (AUTO) 0.21 K/uL (0.00-0.70); EOSINOPHILS % (AUTO) 2.3 % (0.0-8.0); HEMATOCRIT 42.5 % (42-54); IMMATURE GRANULOCYTE ABSOLUTE 0.04 K/uL (0-1); LYMPHOCYTES # (AUTO) 1.3 K/uL (1.0-4.8); LYMPHOCYTES % (AUTO) 14.2 % (21.0-51.0); MEAN CORPUSCULAR HEMOGLOBIN 34.1 pg (27.0-33.0); MEAN CORPUSCULAR HGB CONC 32.5 g/dL (32.0-36.0); MEAN CORPUSCULAR VOLUME 104.9 fL (79-99); MONOCYTES % (AUTO) 10.6 % (3.0-13.0); NEUTROPHILS # (AUTO) 6.4 K/uL (1.8-7.7); NEUTROPHILS % (AUTO) 71.9 % (40.0-77.0); PLATELET COUNT (AUTO) 208 K/uL (130-400); RED BLOOD CELL COUNT(AUTO) 4.05 MIL/uL (4.50-6.20); RED CELL DISTRIBUTION WIDTH 13.3 % (11.0-15.5)
[2024-11-13 11:01] VITALS: BP 147/80; PULSE 60; RESP 18; TEMP 97.5
[2024-11-13 11:05] LABS: CREATININE 1.8 mg/dL (0.5-1.3); POTASSIUM 5.6 mmol/L (3.5-5.1)
[2024-11-13 11:07] LABS: APPEARANCE,URINE CLEAR (CLEAR); BILIRUBIN,URINE NEGATIVE (NEGATIVE); COLOR,URINE LIGHT-YELLOW (YELLOW); GLUCOSE, URINE (UA) NEGATIVE (NEGATIVE); KETONES,URINE NEGATIVE (NEGATIVE); LEUKOCYTE ESTERASE ,URINE NEGATIVE Leu/uL (NEGATIVE); NITRATE,URINE NEGATIVE (NEGATIVE); OCCULT BLOOD,URINE NEGATIVE (NEGATIVE); PROTEIN,URINE NEGATIVE (NEGATIVE); UROBILINOGEN,URINE 0.2 mg/dL (0.2-1.0)
[2024-11-13 11:10] LABS: ADD UA MICROSCOPIC NO
[2024-11-13 11:12] LABS: B-TYPE NATRIURETIC PEPTIDE 246 pg/mL (0-100)
[2024-11-13 11:24] LABS: INR <= 0.93 (0.85-1.15); PROTHROMBIN TIME 10.3 SEC (9.6-11.6)
[2024-11-13 11:25] LABS: PARTIAL THROMBOPLASTIN TIME 26.7 SEC (26.3-35.5)
--- NOTE | 2024-11-13 12:37 | HMCIMG ---
Exam Type: CHEST 1VW Clinical Information: PREOP Comparison: None Findings: The lungs are clear of infiltrates. The heart is enlarged in size. The bony and soft tissue structures of the chest are unremarkable. Left cardiac pacemaker is noted with leads in place. Impression: Clear lungs.
--- NOTE | 2024-11-13 15:13 | NUR ---
report reported to haven apodaca np on bmp. received orders to repeat bmp am of procedure and for nurse to report to md to see if he needs iv hydration prior to procedure. also received instructions for oral hydration prior to procedure. pt notified of above and voiced understanding. also confirmed haven apodaca np/md aware pt fell approx 2 weeks ago and left rib cage area folding machine tender. pt was evaluated at an urgent care facility. ok to proceed
[~2024-11-17] VITALS: Ht 188 cm; Wt 115.0 kg
[~2024-11-17 07:57] MED LIST changes: -AMIO200T44 PO; +AMIO200T68 PO; +ASPI-1443 PO; +LEVO25CA4 PO; -LISI2.5T13 PO; +METO-391 PO; -METO25 PO
[2024-11-17 08:32] LABS: CREATININE 2.1 mg/dL (0.5-1.3); POTASSIUM 5.2 mmol/L (3.5-5.1)
--- NOTE | 2024-11-17 08:55 | NUR ---
Reported BMP to Dr. Martinez at this time. Stated he will come and speak to Patient.
[2024-11-17 08:58] VITALS: BP 138/75; PULSE 60; RESP 18; TEMP 97.4
--- NOTE | 2024-11-17 10:21 | NUR ---
Dr. Martinez spoke at length with Patient and regarding labs. Joint decision made to postpone LHC and see Kidney Specialist before proceeding. PIV removed and Patient left DP at 10:20 am.
--- NOTE | 2024-11-17 14:39 | PN ---
This is a gentleman that has been evaluated by the Heart Clinic in the past and evaluated because of severe coronary artery disease. The patient has been assessed recently and had an abnormal imaging studies. The patient has been having symptoms of progressive dyspnea on exertion. The patient had an evaluation preoperatively with a creatinine of 1.8. We elected to hydrate the patient carefully and have him have the study of his labs repeated this morning. Unfortunately, this was measured at 2.1. His GFR is less than 40. Given that, I had a detailed discussion with the patient and his family regarding the various options for management. We discussed the option of continued medical management versus the option of proceeding with cardiac catheterization and coronary arteriography. The patient fully understands that the renal dysfunction is a very significant issue and that any attempt at addressing the coronary arteries with contrast use may result in worsening renal dysfunction potential for further complications. I discussed the option of continued medical management versus the option of proceeding with cardiac catheterization at a higher risk for renal dysfunction. The patient and his family elected to continue with conservative medical management. The patient has been advised to have his parameters evaluated by his primary care team as well as by Nephrology. This will be addressed by the patient's primary care team. From the cardiac standpoint, I will continue the current conservative medical management and have the patient reevaluated in a few weeks in the office and we will discuss further management modalities as needed. TID: [id number] RECEIPT: [id number]
== END 2024-11-17 10:20 | disposition home or self-care (01) ==
LOC: DAH 07:57
PROVIDERS: ATTEND Internal Medicine Cardiovascular Disease
DX: R06.09 Other forms of dyspnea (principal); Z53.8 Procedure and treatment not carried out for other reasons; N18.6 End stage renal disease; Z79.82 Long term (current) use of aspirin; Z79.899 Other long term (current) drug therapy
CPT/HCPCS: 71045; 80048 ×2; 83880; 85025; 85610; 85730; 81003; 36415 ×2; 93005; A4215; A4222; A4221; A4663; A4216; A4606; A4223 ×3